=== PATIENT | male | born 2000 | race Caucasian/White ===

== ENCOUNTER 2022-08-03 19:47 | Emergency (ER) | payer OTHER ==
[~2022-08-03] VITALS: Ht 182.9 cm; Wt 108.9 kg
[2022-08-03 20:10] VITALS: BP 135/80
--- NOTE | 2022-08-03 22:16 | NUR ---
PT TO 2
[2022-08-03] MEDS ORDERED: KETOROLAC 30 MG/ML VIAL IM ONE (22:30)
[2022-08-03] MEDS ORDERED: diazePAM 5 MG TAB PO ONE (22:30)
[2022-08-03] MEDS ORDERED: LID5T TP (22:48)
[2022-08-03] MEDS ORDERED: NAPR-54 PO (22:48)
[2022-08-03] MEDS ORDERED: CYCL-711 PO (22:48)
[2022-08-03 23:05] VITALS: BP 135/80
--- NOTE | 2022-08-03 23:05 | NUR ---
Patient discharged. Written and verbal after care instructions given and explained. Patient alert, oriented and verbalized understanding of instructions. Ambulatory with steady gait. All questions addressed prior to discharge. ID band removed. Patient advised to follow up with PMD. Rx of Flexeril, Lidocaine Hyd, and Naproxen given. Patient educated on indication of medication including possible reaction and side effects. Opportunity to ask questions provided and answered.
== END 2022-08-03 23:05 | disposition home or self-care (01) ==
LOC: MED 19:47
DX: M54.50 Low back pain, unspecified (principal); Z79.899 Other long term (current) drug therapy; Z98.890 Other specified postprocedural states
CPT/HCPCS: 96372; 99283; J1885

== ENCOUNTER 2023-11-25 10:44 | Emergency (ER) | payer OTHER ==
[~2023-11-25] VITALS: Ht 182.9 cm; Wt 113.1 kg
[~2023-11-25 10:44] MED LIST: CYCL-711 PO; LID5T TP; NAPR-337 PO
[2023-11-25 10:51] VITALS: BP 118/81; PULSE 120; RESP 18; TEMP 98.2; O2SAT 98
[2023-11-25] MEDS ORDERED: ONDANSETRON 4 MG/2 ML VIAL IVP ONE (11:15)
[2023-11-25 11:34] LABS: BASOPHILS % (AUTO) 0.3 % (0.0-2.0); EOSINOPHILS # (AUTO) 0.1 K/uL (0-0.4); EOSINOPHILS % (AUTO) 0.4 % (0.0-4.0); HEMATOCRIT 47.3 % (36-52); HEMOGLOBIN 15.6 g/dL (12.0-18.0); LYMPHOCYTES # (AUTO) 0.4 K/uL (2.0-11.5); LYMPHOCYTES % (AUTO) 3.2 % (20.5-51.1); MEAN CORPUSCULAR HEMOGLOBIN 28 pg (27-31); MEAN CORPUSCULAR HGB CONC 33 g/dL (33-37); MONOCYTES # (AUTO) 0.4 K/uL (0.8-1.0); MONOCYTES % (AUTO) 3.1 % (1.7-9.3); NEUTROPHILS # (AUTO) 12.8 K/uL (1.8-7.7); PLATELET COUNT (AUTO) 203 K/uL (140-450); RED BLOOD CELL COUNT(AUTO) 5.63 MIL/uL (4.20-6.10); RED CELL DISTRIBUTION WIDTH 13.8 % (11.6-13.7); WHITE BLOOD COUNT (AUTO) 13.8 K/uL (4.8-10.8)
[2023-11-25] MEDS: NACL 0.9% 1,000 ML IV ONE (11:36)
[2023-11-25] MEDS: KETOROLAC 30 MG/ML VIAL IVP ONE (11:40)
[2023-11-25 11:44] LABS: ANION GAP 14.3 (8-16); CALCIUM 8.6 mg/dL (8.5-10.1); CARBON DIOXIDE 24.6 mmol/L (21-32); CREATININE 0.8 mg/dL (0.6-1.3); POTASSIUM 3.9 mmol/L (3.5-5.1)
[2023-11-25 11:50] LABS: ALBUMIN 4.3 g/dL (3.4-5.0); BILIRUBIN,DIRECT 0.1 mg/dL (0.0-0.3); TOTAL BILIRUBIN 0.7 mg/dL (0.0-1.0); TOTAL PROTEIN, SERUM 7.7 g/dL (6.4-8.2)
[2023-11-25 13:00] LABS: FLU A ANTIGEN negative (NEGATIVE); FLU B ANTIGEN NEGATIVE (NEGATIVE)
[2023-11-25 13:38] VITALS: BP 115/71; PULSE 100; RESP 17; TEMP 98.4; O2SAT 97
== END 2023-11-25 13:38 | disposition home or self-care (01) ==
LOC: MED 10:44
DX: B34.9 Viral infection, unspecified (principal); Z20.822 Contact with and (suspected) exposure to COVID-19; Z79.1 Long term (current) use of non-steroidal anti-inflammatories (NSAID); Z79.899 Other long term (current) drug therapy
CPT/HCPCS: 36415; 80048; 80076; 83690; 85025; 87426; 87804; 93005; 96361; 96374; 99284; J1885; J7030